=== PATIENT | male | born 1970 | race Caucasian/White ===

== ENCOUNTER 2018-11-19 19:17 | Inpatient (IN) | payer OTHER ==
[~2018-11-19] VITALS: Ht 177.8 cm; Wt 140.6 kg
[2018-11-19 19:22] VITALS: BP 186/93
[2018-11-19] MEDS ORDERED: PRILOSEC10 MG PO (19:26)
[2018-11-19 20:01] LABS: ABSOLUTE BASOPHILS 0.1 thou/uL (0.0-0.2); ABSOLUTE EOSINOPHILS 0.1 thou/uL (0.0-0.7); ABSOLUTE LYMPHOCYTES 3.3 thou/uL (0.8-5.3); ABSOLUTE MONOCYTES 0.6 thou/uL (0.0-1.2); ABSOLUTE NEUTROPHILS 4.5 thou/uL (1.6-8.1); EOSINOPHILS 1.6 %; HEMATOCRIT 45.4 % (42.0-52.0); HEMOGLOBIN 16.1 gm/dL (14.0-18.0); LYMPHOCYTES 38.4 %; MCHC 35.4 g/dL (28.0-37.0); MCV 93.2 fL (80.0-100.0); MPV 8.9 fl. (7.2-11.1); NUCLEATED RBCS 0 /100WBC; PLATELET COUNT* 187 thou/uL (150-400); RBC 4.88 mil/uL (4.50-6.00); RDW-CV 13.5 % (10.5-14.5); WBC 8.7 thou/uL (4.0-11.0)
[2018-11-19 20:03] LABS: CALCIUM 8.8 mg/dL (8.5-10.1); CREATININE 1.1 mg/dL (0.6-1.3); POTASSIUM 4.2 mmol/L (3.5-5.1)
[2018-11-19 20:08] LABS: ALBUMIN 3.9 g/dL (3.4-5.0); TOTAL BILIRUBIN 0.4 mg/dL (<0.1-1.0); TOTAL PROTEIN 7.8 g/dL (6.4-8.2)
[2018-11-19 22:05] VITALS: BP 162/79
[2018-11-19 22:26] VITALS: BP 150/95
--- NOTE | 2018-11-20 04:43 | NUR ---
PATIENT ADMITTED 2229. DR CUMMINGS SAW SURGERY WILL BE 829 ON THURSDAY. APPENDECTOMY. BEEN NPO SINCE ARRIVING HERE. RAN LR AND ROCEPHIN ORDERED. PATIENT REPORTS NO PAIN OR NAUSEA. HE IS UP AD BERT AND SLEPT THROUGH THE SHIFT. HE USES CPAP AT NIGHT. HE IS CONCERNED ABOUT DISCHARGE WANTS TO LEAVE AFTER SURGERY.
[2018-11-20 08:00] VITALS: BP 153/82
[2018-11-20 11:00] VITALS: BP 125/67
--- NOTE | 2018-11-20 11:03 | H ---
[place] [address] HISTORY AND PHYSICAL Name: SARAI AGUERO Room: [address] M.R.#: [id number] Admission: 11/19/18 Attend Phys: Trung Yoon MD Discharge: Date of : 66 Report #: [id number] THIS REPORT FOR: //name// CC: Trung Munson DATE OF SERVICE: 11/19/2018 ATTENDING PHYSICIAN: Dr. Trung Yoon. CHIEF COMPLAINT: Abdominal pain. HISTORY OF PRESENT ILLNESS: The patient is a very pleasant 48-year-old gentleman who has had abdominal pain since Thursday. The patient reports that he went to his primary care physician today where an outpatient CT scan was ordered, demonstrated appendicitis. He was told to come to the ER. The patient reports that his pain did improve today. He thought that it might be resolving completely. He endorses that the pain started in the periumbilical region on Thursday and migrated to his right lower quadrant. Dull/hazy in characterization. It is mild in intensity currently. He is unsure of any relieving or exacerbating factors. He denies nausea or vomiting. He has had bowel movements, last was 2 days ago. He denies any diarrhea or blood in his stools. He denies any fevers/chills/night sweats/chest pain/shortness of air. PAST MEDICAL HISTORY: 1. Hypertension. 2. Morbid obesity. 3. Obstructive sleep apnea. PAST SURGICAL HISTORY: 1. Denies any surgeries. 2. No colonoscopy. SOCIAL HISTORY: Rare alcohol use, no tobacco use. 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 FAMILY HISTORY: Denies coagulopathy. Father had stomach and colon cancer. REVIEW OF SYSTEMS: CONSTITUTIONAL: No fever. No chills. HEENT: Denies blurring of vision, double vision, headaches, hearing loss, sinus drainage or sore throat. Denies blurring of vision, double vision, headaches, hearing loss, sinus drainage [place] [address] HISTORY AND PHYSICAL Name: SARAI AGUERO Room: [address] ..#: [id number] Admission: 11/19/18 Attend Phys: Trung Yoon MD Discharge: Date of : 66 Report #: [id number] CARDIOVASCULAR: Denies chest pain, palpitations, orthopnea or paroxysmal nocturnal dyspnea. RESPIRATORY: Denies cough, wheezing, hemoptysis, or shortness of air. GASTROINTESTINAL: See above and below. GENITOURINARY: Denies dysuria or hematuria or kidney stones. No urinary frequency, urgency or incontinence. Denies dysuria or hematuria or kidney stones. No urinary frequency, urgency or incontinence. MUSCULOSKELETAL: No joint pain. No muscle pain. NEUROLOGICAL: Denies tremor, stroke or seizure. Denies tremor, stroke or seizure. HEMATOLOGIC / LYMPHATICS: Denies easy bruising, easy bleeding or enlarged lymph nodes. SKIN: No rash or ulceration. ENDOCRINE: No heat or cold intolerance PSYCHIATRIC: Denies depression, anxiety, or schizophrenia. PHYSICAL EXAMINATION: VITAL SIGNS: Temperature is 36.9, pulse 66, respiratory rate 16, blood pressure 150/55. GENERAL: No apparent distress, alert and oriented x3. HEENT: PERRLA, EOMI, MMM, NCAT NECK: Supple. No LAD CARDIOVASCULAR: Regular rhythm and rate. Hemodynamically stable. Normal capillary refill. Regular rhythm and rate. Hemodynamically stable. Normal capillary refill. PULMONARY: Nonlabored. Clear to auscultation bilaterally ABDOMEN: Soft, mild tenderness to palpation in the right lower quadrant. No guarding, no rebound, no rigidity. He does have diastasis recti in the upper abdomen. He does have a small umbilical hernia. He is morbidly obese. EXTREMITIES: Calves soft, nontender, no edema. SKIN: No rashes or bruises. PSYCHIATRIC: Normal mood and affect Normal mood and affect NEUROLOGICAL: Grossly intact. CN II-XII grossly intact. MUSCULOSKELETAL: 5/5 strength in upper extremities and lower extremities bilaterally LYMPHATICS: No cervical, inguinal, or supraclavicular lymphadenopathy. LABORATORY DATA: White blood count is 8.7, hemoglobin 16, platelets 187. Sodium 138, potassium 1.1. IMAGING: CT abdomen and pelvis is reviewed by myself and the report is consistent with appendicitis. ASSESSMENT: The patient is a very pleasant 48-year-old gentleman with [place] [address] HISTORY AND PHYSICAL Name: SARAI AGUERO Caroline Room: [address] IN [facility]#: [id number] Admission: 11/19/18 Attend Phys: Trung Yoon MD Discharge: Date of : 66 Report #: [id number] DIAGNOSES: 1. Acute appendicitis, nonperforated. 2. Morbid obesity. 3. Hypertension. 4. Obstructive sleep apnea. PLAN: 1. Admit to Dr. Yoon. 2. NPO after midnight. 3. IV antibiotics. 4. IV fluid resuscitation. 5. Consent for laparoscopic appendectomy, possible open. <ELECTRONICALLY SIGNED> By: Trung Yoon MD 11/20/18 1103 [id number] Yoon MD /nt
--- NOTE | 2018-11-20 11:30 | NUR ---
PATIENT ARRIVED BACK TO UNIT FROM PACU AT 1048. ALERT AND ORIENTED X 4. VITAL SIGNS STABLE ON ROOM AIR. WILL ADVANCE PATIENT DIET. DENIES PAIN AT THIS TIME. CALL LIGHT WITHIN REACH. NURSING WILL CONTINUE TO MONITOR.
[2018-11-20 13:22] VITALS: BP 153/82
[2018-11-20 13:24] VITALS: BP 153/82
[2018-11-20] MEDS ORDERED: NORCO 5-325 TA1 EAC1 PO (13:28)
--- NOTE | 2018-11-20 16:09 | NUR ---
PATIENT DISCHARGED FROM UNIT AT 1515. ALERT AND ORIENTED X 4. VITAL SIGNS STABLE ON ROOM AIR. AFEBRILE. UP INDEPENDENTLY AND AMBULATING IN ROOM. VOIDING WITHOUT DIFFICULTIES. DENIES PAIN AND NAUSEA AT THIS TIME. DERABOND DRESSING TO 4 LAP SITES C/D/I. DISCHARGE INSTRUCTIONS AND SCRIPT GIVEN TO PATIENT. LEFT WITH ALL BELONGINGS. PATIENT LEFT WITH VIA CAR.
--- NOTE | 2018-11-23 15:07 | PATH ---
[address] [address] PATHOLOGY RPT PROCEDURE Name: SARAI VALENTE Room: [address] M.R.#: [id number] Admission: 11/19/18 Date of : 66 Discharge: 11/20/18 Report #: [id number] Path Case #: [id number] [facility] Accession Number: [id number] . 01 Material submitted: . appendix - APPENDIX . 01 Clinical history: . Acute appendicitis . 02 Diagnosis: Appendix: - Acute appendicitis, periappendicitis, and serositis. (BILLIE:caitlyn; 11/23/2018) [facility] [place] 11/23/2018 1258 Local . 02 Electronically signed: . Sharad Dotson MD, Pathologist NPI- [id number] . 01 Gross description: . Received in formalin labeled "Sarai Valente, appendix," is a ragged-appearing, partially disrupted appendix measuring 5.0 cm in length with a large amount of attached mesoappendix measuring up to 2.7 cm in thickness. The appendiceal serosa is pale arellano to dusky buck-arellano in appearance, extensively covered in buck-arellano adhesions and pale arellano fibrous exudate. The appendix is almost entirely transected near the distal tip (inked yellow); this area extends to within 3.8 cm of the proximal margin. The proximal margin is closed with a linear staple line; this area is inked black. Serial sectioning reveals a pinpoint to patent lumen measuring up to 0.2 cm in diameter and partially filled with friable, dark brown fecal material. Sectioning through the attached mesoappendix reveals yellow-brown cut surfaces. The proximal margin and bisected distal tip are submitted in cassette A1, to representatively include the previously transected area. Additional counter sales representative sections are submitted in cassette A2. (DAC; 11/22/2018) XDC/XDC 11/23/2018 1257 Local . 02 Pathologist provided ICD-10: K35.80, K65.8 . 02 CPT . 012300 Specimen Comment: A courtesy copy of this report has been sent to Specimen Comment: [phone], . Specimen Comment: Report sent to / DR ESQUEDA Performed at: [address] [place] [address] PATHOLOGY RPT PROCEDURE Name: SARAI VALENTE Caroline Room: [address] M.R.#: [id number] Admission: 11/19/18 Date of : 66 Discharge: 11/20/18 Report #: [id number] Path Case #: [id number] [facility] [address], [place], [place] [id number] MD Noe Chambers MD Phone: [phone] Performed at: [address] [place] [id number] MD Sharad Dotson MD Phone: [phone]
== END 2018-11-20 15:15 | disposition home or self-care (01) | DRG 342 ==
LOC: M.ORTHSURG 20:30 → M.TBA-ER 20:30 → M.ORTHSURG 21:50
PROVIDERS: Emergency Medicine; ADMIT Surgery
PROC: 0DTJ4ZZ Resection of Appendix, Percutaneous Endoscopic Approach (ICD-10-PCS; principal; 2018-11-20)
DX: K35.80 Unspecified acute appendicitis (principal); Z68.41 Body mass index [BMI] 40.0-44.9, adult; E66.01 Morbid (severe) obesity due to excess calories; I10 Essential (primary) hypertension; G47.33 Obstructive sleep apnea (adult) (pediatric); Z79.899 Other long term (current) drug therapy